=== PATIENT | female | born 1960 | race African-American/Black ===

== ENCOUNTER 2019-10-03 19:56 | Emergency (ER) | payer MEDICAID, OTHER ==
--- NOTE | 2019-10-03 20:14 | ER Document Report ---
ED Medical Screen (RME) - General Chief Complaint: Knee Pain Stated Complaint: LEFT KNEE PAIN Notes: Patient is a 59-year-old -[place] female with a past medical history of left total knee arthroplasty, kidney failure on dialysis in the past and gout who presents to the emergency department the chief complaint of left knee pain that began recently. She describes it as painful and somewhat swollen. Increased warmth as compared to the opposite. She also notes that the lower leg near the ankle is also a little swollen and tender. She denies any fall, blunt injury or trauma. She states she is concerned because the last time she came for this exact presentation she found out she was in kidney failure and wound up on dialysis. She states since that time her kidneys have "kicked back and" and she no longer needs dialysis. I have treated and performed a rapid initial assessment of this patient. A comprehensive ED assessment and evaluation of the patient, analysis of test results and completion of medical decision making process will be conducted by additional ED providers. PHYSICAL EXAMINATION: GENERAL: Well-appearing, well-nourished and in no acute distress. A&Ox4. Answers questions appropriately. Physical Exam - Vital signs Vitals: Temp Pulse Resp BP Pulse Ox 98.0 F 76 16 116/72 98 10/03/19 20:03 10/03/19 20:03 10/03/19 20:03 10/03/19 20:03 10/03/19 20:03 Course - Vital Signs Vital signs: Temp Pulse Resp BP Pulse Ox 98.0 F 76 16 116/72 98 10/03/19 20:03 10/03/19 20:03 10/03/19 20:03 10/03/19 20:03 10/03/19 20:03
--- NOTE | 2019-10-03 20:44 | RADIOLOGY REPORT (SQ) ---
EXAM DESCRIPTION: XR KNEE 1-2 VIEWS COMPLETED DATE/TME: 10/03/2019 20:12 CLINICAL HISTORY: 59 years, Female, pain COMPARISON: None. NUMBER OF VIEWS: TECHNIQUE: LIMITATIONS: None. FINDINGS: 2 views of the left knee were obtained. No fracture or dislocation. The total knee prosthesis appears to be in satisfactory position. There is no significant sized knee joint effusion. There is atherosclerotic arterial calcification. IMPRESSION: No acute finding. copyright 2010 [employer]- All Rights Reserved
[2019-10-03 20:59] LABS: ABSOLUTE EOSINOPHILS # (AUTO) 0.2 10^3/uL (0.0-0.6); ABSOLUTE LYMPHOCYTES (AUTO) 1.7 10^3/uL (0.5-4.7); ABSOLUTE MONOCYTES (AUTO) 0.3 10^3/uL (0.1-1.4); ABSOLUTE NEUT (AUTO) 4.3 10^3/uL (1.7-8.2); BASOPHILS % (AUTO) 0.7 % (0-2); EOSINOPHILS % (AUTO) 3.3 % (0-6); HEMATOCRIT 39.7 % (36.0-47.0); MEAN CORPUSCULAR HEMOGLOBIN 32.4 pg (27.0-33.4); MEAN CORPUSCULAR HGB CONC 35.3 g/dL (32.0-36.0); MEAN CORPUSCULAR VOLUME 92 fl (80-97); MONOCYTES % (AUTO) 4.5 % (3-13); PLATELET COUNT 246 10^3/uL (150-450); RED BLOOD COUNT 4.33 10^6/uL (3.72-5.28); RED CELL DISTRIBUTION WIDTH 13.1 % (11.5-14.0); SEGMENTED NEUTROPHILS % (AUTO) 65.5 % (42-78); TOTAL CELLS COUNTED % (AUTO) 100 %; WHITE BLOOD COUNT 6.5 10^3/uL (4.0-10.5)
[2019-10-03 21:14] LABS: ANION GAP 6 (5-19); BLOOD UREA NITROGEN 30 mg/dL (7-20); CALCIUM 8.9 mg/dL (8.4-10.2); CARBON DIOXIDE 25 mmol/L (22-30); CHLORIDE 107 mmol/L (98-107); GLUCOSE 117 mg/dL (75-110); POTASSIUM 4.3 mmol/L (3.6-5.0)
[2019-10-03] MEDS ORDERED: OXYCODONE-ACETAMINOPHEN 5-325 MG TABLET PO ONE (21:24)
[2019-10-03] MEDS ORDERED: NORMAL SALINE 1000 ML 1,000 ML IV ONE (21:24)
--- NOTE | 2019-10-03 21:50 | ER Document Report ---
Entered by ALANNA MITCHELL SCRIBE 10/03/192112 Acting as scribe for:ABIODUN VEGA IV, MD ED Extremity Problem, Lower - General Chief Complaint: Knee Pain Stated Complaint: LEFT KNEE PAIN Time Seen by Provider: 10/03/19 21:11 Mode of Arrival: Wheelchair Information source: Patient Notes: This 59 year old female patient with a history of bilateral total knee repla cement presents to the ED today with complaints of left knee pain and swelling to her left foot for the past x10 days. Patient states that the pain has become progressively worse since onset. Patient states that when she had similar symptoms in 2018, she wound up with kidney failure and required dialysis; patient notes she no longer needs dialysis. Patient reports a history of gout x15 years, stating that she hasn't had any problems since and that her current presentation doesn't feel like gout. Patient denies history of blood clots. - Related Data Allergies/Adverse Reactions: aspirin Allergy (Verified 10/03/19 20:13) iodine Allergy (Verified 10/03/19 20:13) Home Medications: amlodipine, ranitidine, spironolactone, metoprolol, vit d, ketoconazole Past Medical History - General Information source: Patient - Social History Smoking Status: Former Smoker Cigarette use (# per day): No Chew tobacco use (# tins/day): No Smoking Education Provided: No Frequency of alcohol use: Occasional Drug Abuse: None Family History: Reviewed & Not Pertinent Patient has suicidal ideation: No Patient has homicidal ideation: No Musculoskeletal Medical History: Reports Hx Gout Past Surgical History: Reports: Hx Orthopedic Surgery - Bilateral total knee replacement Review of Systems - Review of Systems Constitutional: No symptoms reported EENT: No symptoms reported Cardiovascular: No symptoms reported Respiratory: No symptoms reported Gastrointestinal: No symptoms reported Genitourinary: No symptoms reported Female Genitourinary: No symptoms reported Musculoskeletal: See HPI, Other - Left knee pain and swelling. Left foot swelli ng Skin: No symptoms reported Hematologic/Lymphatic: No symptoms reported Neurological/Psychological: No symptoms reported -: Yes All other systems reviewed and negative Physical Exam - Vital signs Vitals: Temp Pulse Resp BP Pulse Ox 98.0 F 76 16 116/72 98 10/03/19 20:03 10/03/19 20:03 10/03/19 20:03 10/03/19 20:03 10/03/19 20:03 Interpretation: Normal - General General appearance: Appears well, Alert - HEENT Head: Normocephalic, Atraumatic Eyes: Normal Pupils: PERRL - Respiratory Respiratory status: No respiratory distress Chest status: Nontender Breath sounds: Normal Chest palpation: Normal - Cardiovascular Rhythm: Regular Heart sounds: Normal auscultation Murmur: No Friction rub: No Gallop: None auscultated - Abdominal Inspection: Normal Distension: No distension Bowel sounds: Normal Tenderness: Nontender - Abdomen soft Organomegaly: No organomegaly - Back Back: Normal, Nontender - Extremities General upper extremity: Normal inspection General lower extremity: Other - Healed incision scars to bilateral knees Knee: Other - Left knee is slightly swollen and warm to palpation compared to the right. No deformity or crepitus appreciated. Active ROM is decreased secondary to pain. - Neurological Neuro grossly intact: Yes - Psychological Associated symptoms: Normal affect, Normal mood - Skin Skin Temperature: Warm Skin Moisture: Dry Skin Color: Normal Course - Re-evaluation Re-evalutation: 10/03/19 23:38 Results of ED MSE, discussion with Dr. Owusu discussed with patient and ashlee gifford's daughter (via phone). All questions were answered prior to discharge. Emergency signs and symptoms, reasons to return to the emergency department discussed with patient. - Vital Signs Vital signs: Temp Pulse Resp BP Pulse Ox 98.0 F 76 16 116/72 98 10/03/19 20:03 10/03/19 20:03 10/03/19 20:03 10/03/19 20:03 10/03/19 20:03 - Laboratory Result Diagrams: 10/03/19 20:45 10/03/19 20:45 Laboratory results interpreted by me: 10/03/19 10/03/19 10/03/19 20:45 20:45 20:45 ESR 52 H BUN 30 H Creatinine 1.70 H Est GFR ( Amer) 37 L Est GFR (MDRD) Non-Af 31 L Glucose 117 H Uric Acid 9.3 H C-Reactive Protein 44.5 H - Diagnostic Test Radiology reviewed: Reports reviewed - Consults Dr. Khari Owusu Time consulted: 22:00 - Dr. Owusu advised against attempting synovial fluid aspiration at this time. He stated that she could follow-up in his office early next week and have a aspiration done using a specialized FDA approved device for aspiration of prosthetic joints. Reason for consultation: 10/03/19 23:39 Left knee pain and swelling, remote history prior left knee replacement Consulted provider: follow-up in office Discharge - Discharge Clinical Impression: Swelling of left knee joint, Renal insufficiency Condition: Good Disposition: HOME, SELF-CARE Additional Instructions: Return to the Emergency Department without delay if any worse. HOME CARE INSTRUCTIONS & INFORMATION: Thank you for choosing us for your medical needs. We hope you're satisfied with the care you received. After you leave, you must properly care for your problem and, at the same time, observe its progress. Any condition can change. Some illnesses can change rapidly over hours or days. If your condition worsens, return to the Emergency Department or see your physician promptly. ABOUT YOUR X-RAYS AND EKG'S: If you had an EKG or X-rays taken, they have been read by the Emergency Physician. The X-rays and EKG's will also be read by a Radiologist or Celery Wrapper within 24 hours. If discrepancies are noted, you wi ll be notified by telephone. Please be certain the ED has a correct telephone number & address where you can be reached. Also, realize that some fractures or abnormalities do not show up on initial X-rays. If your symptoms continue, see your physician. ABOUT YOUR LABORATORY TEST: If you had laboratory tests, the results have been reviewed by the Emergency Physician. Some test results (for example cultures) may not be available for several days. You will be contacted if any test result shows you need additional treatment. Please be certain the ED has a correct telephone number and address where you can be reached. ABOUT YOUR MEDICATIONS: You will receive instructions on how to take your medicine on the prescription label you receive. Additional information may be provided by the Pharmacy. If you have questions afterwards, call the ED for clarification or further instructions. Some prescribed medications may cause drowsiness. Do not perform tasks such as driving a car or operating machinery without consulting your Pharmacist. If you feel you need a refill of pain medication, your condition will need re-evaluation. Please do not call for a refill of any medication. ABOUT YOUR SIGNATURE: Signature of this document acknowledges to followin. Understanding that you received emergency treatment and that you may be released before al medical problems are known or treated. Please be certain the ED has a correct phone number & address where you can be reached. 2. Acknowledgement that you will arrange for follow-up care as recommended. 3. Authorization for the Emergency Physician to provide information to your follow-up Physician in order to maximize your care. AT ANY TIME, IF YOUR SYMPTOMS CHANGE SIGNIFICANTLY OR WORSEN OR YOU DEVELOP NEW SYMPTOMS, RETURN TO THE EMERGENCY DEPARTMENT IMMEDIATELY FOR RE-EVALUATION. OUR GOAL IS TO PROVIDE EXCELLENT MEDICAL CARE! WE HOPE THAT WE HAVE MET YOUR EXPECTATIONS DURING YOUR EMERGENCY DEPARTMENT VISIT AND THAT YOU FEEL YOU HAVE RECEIVED EXCELLENT CARE! Gout You have been diagnosed as having gout. Gout is a problem caused by an excess of uric acid, a natural chemical found in the body. The cause of this disease is unknown. Gout arthritis occurs when crystals of uric acid form in the joints. The big toe is the most common joint involved, but any joint can become affected. Persons with gout may also form uric acid kidney stones, resulting in flank pain and blood in the urine. Nodules of uric acid may form under the skin. The first step of treatment is to decrease the inflammation in the joint with antiinflammatory medication. Medication to lower the uric acid level in the blood may then be prescribed. This medication should be taken regularly, as any sudden change in dosage may provoke an attack of gout. Some foods, such as red meat, can provoke an attack in some gout sufferers. Call the doctor if new symptoms arise, or if you do not improve. Kidney Function Abnormality Your evaluation has shown an abnormality of your kidney function. An abnormal kidney function test can be caused by dehydration, acute kidney damage, blood vessel disease (such as with diabetes or chronic high blood pressure), or just old age. If the abnormality is caused by an acute disease, it may reverse completely. Have a repeat test. If it's normal, don't worry about your kidneys. If you have a chronic kidney problem, you must be careful with medicines and medical tests. Be sure any doctor who prescribes medicine or orders tests knows that your kidney tests have been abnormal. Some medicines must have the dose reduced, other medicines must be avoided. If the doctor has recommended further workup, be sure to follow up as instructed. Call us if you have new flank pain, vomiting, confusion, or if you're unable to urinate. Prescriptions: Hydrocodone/Acetaminophen [[place] 5-325 mg Tablet] 1 tab PO Q6HP PRN #15 tablet PRN Reason: pain Referrals: KOTA RICCI PA-C [Primary Care Provider] - Follow up as needed CARRIE OWUSU JR, [ACTIVE PROVISIONAL STAFF] - 10/06/19 (Call Dr. Owusu's office on 10/06/2019 to schedule a follow up appointment to be seen as soon as possible) I personally performed the services described in the documentation, reviewed and edited the documentation which was dictated to the scribe in my presence, and it accurately records my words and actions.
[2019-10-03 22:09] LABS: C-REACTIVE PROTEIN 44.5 mg/L (<10.0); URIC ACID 9.3 mg/dL (2.5-7.5)
--- NOTE | 2019-10-03 22:14 | RADIOLOGY REPORT (SQ) ---
US LOWER EXTREMITY VEINS EXAM DATE: 10/03/2019 9:27 PM CDT HISTORY: Leg pain and swelling. COMPARISON: None. TECHNIQUE: Grayscale, color Doppler, and spectral Doppler images of the left lower extremity were performed. FINDINGS: The common femoral, superficial femoral and popliteal veins are patent and compressible. Normal augmentation and color Doppler blood flow in the aforementioned veins. The visualized calf veins are also patent. IMPRESSION: No evidence of DVT in the left lower extremity.
[2019-10-03] MEDS ORDERED: HYDROCODONE/ACETAMINOPHEN 5-325 MG (6 TAB/ER DISP) PO PRN (23:37)
[2019-10-04 00:19] VITALS: BP 105/77
== END 2019-10-04 00:19 | disposition home or self-care (01) ==
LOC: ER 19:56
DX: M25.462 Effusion, left knee (principal); M25.562 Pain in left knee; M79.89 Other specified soft tissue disorders; N28.9 Disorder of kidney and ureter, unspecified; Z96.653 Presence of artificial knee joint, bilateral; Z79.899 Other long term (current) drug therapy; Z87.39 Personal history of other diseases of the musculoskeletal system and connective tissue; Z87.891 Personal history of nicotine dependence; Z88.8 Allergy status to other drugs, medicaments and biological substances
CPT/HCPCS: 99284; 96360; 36415; 84550; 85025; 85652; 86140; 80048; 93971; 73560; J7030

== ENCOUNTER 2020-01-24 17:38 | Emergency (ER) | payer MEDICARE ==
[2020-01-24] MEDS ORDERED: OXYCODONE-ACETAMINOPHEN 5-325 MG TABLET PO ONE ×2 (17:55→20:15)
--- NOTE | 2020-01-24 17:57 | ER Document Report ---
ED Medical Screen (RME) - General Chief Complaint: Knee Pain Stated Complaint: KNEE PAIN Time Seen by Provider: 01/24/20 17:43 Primary Care Provider: KOTA RICCI PA-C [Primary Care Provider] - Follow up as needed Mode of Arrival: Wheelchair Information source: Patient Notes: Patient is a 51-year-old female presents emergency department chief complaint of left knee pain. Patient had a knee replacement done in 2004. She states she has had knee pain worsening over the last several months. She states it is gotten to a point where she cannot tolerate the pain. She reports last night the knee pain got very severe, there were swelling and she states it felt warm to the touch. She has never had a DVT before. Patient does have swelling to the left knee, there is an old scar on the anterior knee from the knee replacement. There is no obvious deformity. Unlikely that this is a DVT however due to the swelling, pain and patient reporting it was hot last night we will get an x-ray and also a venous Doppler ultrasound. I have greeted and performed a rapid initial assessment of this patient. A comprehensive ED assessment and evaluation of the patient, analysis of test results and completion of the medical decision making process will be conducted by additional ED providers. I have specifically instructed the patient or family members with the patient to immediately return to any nursing staff should anything change in the patient's condition or with their chief complaint. - Related Data Allergies/Adverse Reactions: aspirin Allergy (Verified 10/03/19 20:13) iodine Allergy (Verified 10/03/19 20:13) Past Medical History Musculoskeltal Medical History: Reports Hx Gout Past Surgical History: Reports: Hx Orthopedic Surgery - Bilateral total knee replacement Physical Exam - Vital signs Vitals: Temp Pulse Resp BP Pulse Ox 98.9 F 89 18 140/91 H 100 01/24/20 17:42 01/24/20 17:42 01/24/20 17:42 01/24/20 17:42 01/24/20 17:42 Course - Vital Signs Vital signs: Temp Pulse Resp BP Pulse Ox 98.9 F 89 18 140/91 H 100 01/24/20 17:42 01/24/20 17:42 01/24/20 17:42 01/24/20 17:42 01/24/20 17:42 Doctor's Discharge - Discharge Referrals: RICCI,KOTA R, PA-C [Primary Care Provider] - Follow up as needed
--- NOTE | 2020-01-24 19:14 | RADIOLOGY REPORT (SQ) ---
EXAM DESCRIPTION: KNEE LEFT 4 VIEW IMAGES COMPLETED DATE/TIME: 01/24/2020 7:00 pm REASON FOR STUDY: KNEE PAIN COMPARISON: 10/03/2019 NUMBER OF VIEWS: Two views. TECHNIQUE: AP and lateral radiographic images acquired of the left knee. LIMITATIONS: None. FINDINGS: Intact knee arthroplasty. No evidence of loosening. No aggressive bone lesion. IMPRESSION: Intact knee arthroplasty. TECHNICAL DOCUMENTATION: JOB ID: [id number] 2010 [employer]- All Rights Reserved Reading location - IP/workstation name: [email or web address]
--- NOTE | 2020-01-24 19:55 | RADIOLOGY REPORT (SQ) ---
EXAM DESCRIPTION: VENOUS UNILATERAL LOWER IMAGES COMPLETED DATE/TIME: 01/24/2020 7:45 pm REASON FOR STUDY: LLE PAIN/SWELLING COMPARISON: Left lower extremity venous Doppler ultrasound 10/03/2019. TECHNIQUE: Grayscale and color images acquired of the left leg venous system. Selected spectral imag es acquired with additional compression and augmentation maneuvers. The contralateral common femoral vein and saphenofemoral junction were also imaged. Images stored on PACS. LIMITATIONS: Soft tissue edema. FINDINGS: COMMON FEMORAL: Normal phasicity, compression and augmentation. No visualized echogenic ma terial on shaw scale. No defects on color images. FEMORAL: Normal compression and augmentation. No visualized echogenic material on shaw scale. No defe cts on color images. POPLITEAL: Normal compression, augmentation. No visualized echogenic material on shaw scale. No defec ts on color images. CALF VESSELS: The peroneal vein was not visualized due to soft tissue edema. Normal compression with no visualized echogenic material on shaw scale and no defects on color images at the posterior tibia l vein. GSV and SSV: Normal compression, augmentation. No visualized echogenic material on shaw scale. No def ects on color images. ANY DEEP VENOUS INSUFFICIENCY: Not evaluated. ANY EVIDENCE OF POPLITEAL CYST: No. CONTRALATERAL COMMON FEMORAL VEIN AND SAPHENOFEMORAL JUNCTION: Normal phasicity, compression and augmentation. No visualized echogenic material on shaw scale. No de fects on color images. IMPRESSION: NO EVIDENCE FOR DVT OR SVT IN THE LEFT LEG. TECHNICAL DOCUMENTATION: JOB ID: [id number] 2010 [employer]- All Rights Reserved Reading location - IP/workstation name: [email or web address]
--- NOTE | 2020-01-24 22:01 | ER Document Report ---
ED Extremity Problem, Lower - General Chief Complaint: Knee Pain Stated Complaint: KNEE PAIN Time Seen by Provider: 01/24/20 17:43 Primary Care Provider: KOTA RICCI PA-C [Primary Care Provider] - Follow up as needed CARRIE DIOP JR, DO [ACTIVE PROVISIONAL STAFF] - Follow up as needed Mode of Arrival: Wheelchair Notes: Very pleasant 59-year-old female with past medical history of gout, COPD, hypertension, rheumatoid arthritis, double knee replacement presenting with 5 months of left knee pain. States that she has seen Dr. Diop for her knee pain. Her last appointment was 1 month ago. He has prescribed her steroids which provided no relief of her pain. She states that today she felt worsening pain and she almost fell due to her knee was giving out. She also reports that there is some swelling. She states that her knee continues to pop out place. She has concerns that her weight is causing some of her symptoms. She states that she has been to physical therapy for her bilateral shoulder pain. She has follow-up appointments with her primary care and Dr. Diop in the next 1 to 2 months. Is unable to see rheumatoid arthritis until 2020. Has taken narcotics for pain relief after her surgeries. Her left knee replacement was performed in 2004 in [place], [place]. States she has chronic abdominal pain. She denies any fevers, chills. Is visibly upset that she has been in pain for 5 months and nobody has been able to find an answer. Tylenol is not helping with her pain. States last time this knee pain occurred she was in renal failure requiring dialysis. No longer on dialysis. - Related Data Allergies/Adverse Reactions: aspirin Allergy (Verified 10/03/19 20:13) iodine Allergy (Verified 10/03/19 20:13) Past Medical History - General Information source: Patient - Social History Smoking Status: Unknown if Ever Smoked Family History: Reviewed & Not Pertinent Patient has homicidal ideation: No - Past Medical History Cardiac Medical History: Reports: Hx Hypertension Endocrine Medical History: Reports: Hx Diabetes Mellitus Type 2 - borderline Musculoskeletal Medical History: Reports Hx Gout Past Surgical History: Reports: Hx Appendectomy, Hx Cholecystectomy, Hx Orthopedic Surgery - Bilateral total knee replacement Review of Systems - Review of Systems Constitutional: No symptoms reported EENT: No symptoms reported Cardiovascular: No symptoms reported Respiratory: No symptoms reported Gastrointestinal: See HPI Genitourinary: No symptoms reported Female Genitourinary: No symptoms reported Musculoskeletal: See HPI Skin: No symptoms reported Hematologic/Lymphatic: No symptoms reported Physical Exam - Vital signs Vitals: Temp Pulse Resp BP Pulse Ox 98.9 F 89 18 140/91 H 100 01/24/20 17:42 01/24/20 17:42 01/24/20 17:42 01/24/20 17:42 01/24/20 17:42 Interpretation: Normal - Notes Notes: Adult General: GENERAL: Alert, interacts well. No acute distress HEAD: Normocephalic, atraumatic EYES: Pupils equal, round and reactive to light. Extraocular movements intact. ENT: Airway patent. Nares patent. NECK: Full range of motion. Supple. Trachea midline. LUNGS: Clear to auscultation bilaterally, no wheezes, rales, or rhonchi. No respiratory distress. Nontender chest wall. HEART: Regular rate and rhythm. No murmurs, rubs or gallops. ABDOMEN: Soft, nontender. GENITOURINARY: Deferred EXTREMITIES: Limited flexion of her left knee. Mild swelling above the patella. Tender to palpation above patella. No erythema or warmth. Dorsal pedis pulses palpable bilaterally. Good sensation in distal extremities. BACK: No cervical, thoracic, lumbar midline tenderness. normal distal neurovascular exam. NEUROLOGICAL: Alert and oriented x3. Normal speech. 4/5 strength in left lower extremity. PSYCH: Normal affect, normal mood. SKIN: Warm, dry, normal turgor. No rashes or lesions noted. Course - Re-evaluation Re-evalutation: 01/24/20 22:01 I had an in-depth long discussion with the patient about her left knee pain. She states that she is tired of the knee pain and that there have been no answered to the cause of her pain and she has not had improvement in her symptoms. I discussed with her that her x-ray shows no acute findings and that her ultrasound shows no DVT or SVT. I also discussed with patient that she is correct that losing weight could decrease the pain in her knee. Discussed with her following up with her primary care for nutrition referral and also a potential pain management referral. I also discussed with patient that she should follow-up with Dr. Diop in regards to her pain for additional treatment options at this time. I discussed with her that there is no urgent or emergent cause of her pain at this time. I will prescribe her pain medications. I also recommend patient obtain a cane or walker to aid in her walking as she has concerns of feeling unsteady and falling. I reviewed patients chart more indepth. She was seen back in September for the same complaint. Recommend additional labs at this time. Pending those results. Patient's creatinine is 1.38, uric acid is mildly elevated at 8.1 she has an ESR of 57. Rest of her labs are unremarkable. I discussed these findings with the patient. I reiterated to the patient that she needs to follow-up with Dr. Diop in regards to her knee pain. I will prescribe her pain medication at this time. I discussed return precautions to the emergency department to include worsening symptoms or development of new symptoms. Patient acknowledges and verbalizes understanding of instructions and plan. All questions answered. - Vital Signs Vital signs: Temp Pulse Resp BP Pulse Ox 97.7 F 83 16 116/72 98 01/25/20 00:15 01/25/20 00:15 01/25/20 00:15 01/25/20 00:15 01/25/20 00:15 - Laboratory Result Diagrams: 01/24/20 22:48 01/24/20 22:48 Laboratory results interpreted by me: 01/24/20 01/24/20 22:48 22:48 ESR 57 H BUN 24 H Creatinine 1.38 H Est GFR ( Amer) 48 L Est GFR (MDRD) Non-Af 39 L Uric Acid 8.1 H Discharge - Discharge Clinical Impression: Elevated serum creatinine Gout Qualifiers: Gout site: knee Gout etiology: unspecified cause Chronicity: chronic Laterality: left Qualified Code(s): M1A.0620 - Idiopathic chronic gout, left knee, without tophus (tophi) Left knee pain Qualifiers: Chronicity: chronic Qualified Code(s): M25.562 - Pain in left knee Disposition: HOME, SELF-CARE Instructions: Oral Narcotic Medication ([facility]) Additional Instructions: Please follow-up with your orthopedic doctor as soon as possible. Please follow-up with your primary care doctor to continue to evaluate for your elevated creatinine. Please return the emergency department if you have worsening symptoms or development of new symptoms. Please consider purchasing an ambulatory device to help you not feel like your knee is giving out on you such as a cane or walker. Prescriptions: Hydrocodone/Acetaminophen [[place] 10-325 Tablet] 1 each PO Q6H 3 Days #12 tablet Referrals: KOTA RICCI PA-C [Primary Care Provider] - Follow up as needed CARRIE DIOP JR, DO [ACTIVE PROVISIONAL STAFF] - Follow up as needed
[2020-01-24 23:00] LABS: ABSOLUTE EOSINOPHILS # (AUTO) 0.2 10^3/uL (0.0-0.6); ABSOLUTE LYMPHOCYTES (AUTO) 2.1 10^3/uL (0.5-4.7); ABSOLUTE MONOCYTES (AUTO) 0.3 10^3/uL (0.1-1.4); ABSOLUTE NEUT (AUTO) 4.9 10^3/uL (1.7-8.2); BASOPHILS % (AUTO) 0.5 % (0-2); EOSINOPHILS % (AUTO) 2.7 % (0-6); HEMATOCRIT 39.3 % (36.0-47.0); HEMOGLOBIN 13.4 g/dL (12.0-15.5); LYMPHOCYTES % (AUTO) 27.4 % (13-45); MEAN CORPUSCULAR HEMOGLOBIN 31.7 pg (27.0-33.4); MEAN CORPUSCULAR VOLUME 93 fl (80-97); MONOCYTES % (AUTO) 4.6 % (3-13); PLATELET COUNT 298 10^3/uL (150-450); RED BLOOD COUNT 4.21 10^6/uL (3.72-5.28); RED CELL DISTRIBUTION WIDTH 13.8 % (11.5-14.0); SEGMENTED NEUTROPHILS % (AUTO) 64.8 % (42-78); TOTAL CELLS COUNTED % (AUTO) 100 %; WHITE BLOOD COUNT 7.5 10^3/uL (4.0-10.5)
[2020-01-24 23:18] LABS: ALBUMIN 3.6 g/dL (3.5-5.0); ALKALINE PHOSPHATASE 111 U/L (38-126); ANION GAP 8 (5-19); ASPARTATE AMINO TRANSFERASE 23 U/L (14-36); BILIRUBIN,TOTAL 0.4 mg/dL (0.2-1.3); BLOOD UREA NITROGEN 24 mg/dL (7-20); CALCIUM 8.9 mg/dL (8.4-10.2); CARBON DIOXIDE 24 mmol/L (22-30); CHLORIDE 105 mmol/L (98-107); GLUCOSE 100 mg/dL (75-110); POTASSIUM 4.2 mmol/L (3.6-5.0); TOTAL PROTEIN 7.5 g/dL (6.3-8.2); URIC ACID 8.1 mg/dL (2.5-7.5)
[2020-01-24 23:49] LABS: ERYTHROCYTE SEDIMENTATION RATE 57 mm/hr (0-30)
[2020-01-25 00:18] VITALS: BP 116/72
== END 2020-01-25 00:19 | disposition home or self-care (01) ==
LOC: ER 17:38
DX: M1A.0620 Idiopathic chronic gout, left knee, without tophus (tophi) (principal); R79.89 Other specified abnormal findings of blood chemistry; M25.562 Pain in left knee; Z96.653 Presence of artificial knee joint, bilateral; J44.9 Chronic obstructive pulmonary disease, unspecified; I10 Essential (primary) hypertension; M06.9 Rheumatoid arthritis, unspecified; E11.9 Type 2 diabetes mellitus without complications; Z88.8 Allergy status to other drugs, medicaments and biological substances
CPT/HCPCS: 99284; 36415; 84550; 85025; 85652; 80053; 93971; 73564; A9270

== ENCOUNTER → 2020-02-09 | Outpatient (CLI) | payer MEDICARE ==
[2020-02-09 13:31] LABS: FREE T4 (FREE THYROXINE) 1.19 ng/dL (0.78-2.19)
[2020-02-09 13:45] LABS: THYROID STIMULATING HORMONE 1.46 uIU/mL (0.47-4.68)
== END ==
LOC: OD 12:03
PROVIDERS: ATTEND Otolaryngology
DX: E04.2 Nontoxic multinodular goiter (principal)
CPT/HCPCS: 36415; 84439; 84443

== ENCOUNTER → 2020-03-02 | Outpatient (CLI) | payer MEDICARE | LOC: RAD 11:03 | PROVIDERS: ATTEND Internal Medicine Hematology & Oncology | DX: R91.8 Other nonspecific abnormal finding of lung field (principal); J98.4 Other disorders of lung | CPT/HCPCS: 78815; A9552 ==

== ENCOUNTER → 2020-03-25 | Outpatient (CLI) | payer MEDICARE, MEDICAID ==
--- NOTE | 2020-03-25 14:59 | WOMENS IMAGING REPORT ---
EXAM DESCRIPTION: U/S THYROID/ST TIS HEAD NECK IMAGES COMPLETED DATE/TIME: 03/25/2020 8:33 am REASON FOR STUDY: E04.2 NONTOXIC MULTINODULAR GOITER E04.2 NONTOXIC MULTINODULAR GOITER COMPARISON: None. TECHNIQUE: Dynamic and static shaw-scale images acquired of the thyroid gland. Selected additional c olor/power Doppler images recorded. All images stored to PACS. LIMITATIONS: None. FINDINGS: RIGHT LOBE: Prominent size, 5.1 cm Homogeneous echotexture. Multiple nodules. LEFT LOBE: Prominent size, 5.1 cm. Homogeneous echotexture. Multiple nodules ISTHMUS: Prominent, 4.4 mm. Homogeneous echotexture. No cystic or solid masses. OTHER: No other significant finding. IMPRESSION: Multinodular goiter. The largest in the right lobe measures 12.7 mm. The largest on th e left measures 13.6 mm. COMMENT: Consider the biopsy of the larger nodules on each side. TECHNICAL DOCUMENTATION: JOB ID: [id number] 2010 [employer]- All Rights Reserved Reading location - IP/workstation name: [email or web address]
== END ==
LOC: WI 07:46
PROVIDERS: ATTEND Internal Medicine Pulmonary Disease
DX: E04.2 Nontoxic multinodular goiter (principal)
CPT/HCPCS: 76536

== ENCOUNTER → 2020-03-29 | Outpatient (CLI) | payer MEDICAID, MEDICARE ==
--- NOTE | 2020-03-29 11:14 | WOMENS IMAGING REPORT ---
EXAM DESCRIPTION: RETROPERITONEAL U/S IMAGES COMPLETED DATE/TIME: 03/29/2020 10:54 am REASON FOR STUDY: N18.3 CHRONIC KIDNEY DISEASE, STAGE 3 (MODERATE) N18.3 CHRONIC KIDNEY DISEASE, ST AGE 3 (MODERATE) COMPARISON: None. TECHNIQUE: Dynamic and static grayscale images acquired of the kidneys and bladder and recorded on P ACS. Additional selected color Doppler and spectral images recorded. LIMITATIONS: None. FINDINGS: RIGHT KIDNEY: The right kidney measures 8.7 cm in cranial caudal dimensions. Normal ech ogenicity. No solid or suspicious masses. No hydronephrosis. No calcifications. LEFT KIDNEY: The left kidney measures 9.3 cm in cranial caudal dimensions. Normal echogenicity. No solid or suspicious masses. No hydronephrosis. No calcifications. BLADDER: The bladder is decompressed. OTHER FINDINGS: No other significant finding. IMPRESSION: Normal renal ultrasound. The bladder is decompressed. TECHNICAL DOCUMENTATION: JOB ID: [id number] 2010 [employer]- All Rights Reserved Reading location - IP/workstation name: [email or web address]
== END ==
LOC: WI 09:56
PROVIDERS: ATTEND Physician Assistant Medical
DX: I12.9 Hypertensive chronic kidney disease with stage 1 through stage 4 chronic kidney disease, or unspecified chronic kidney disease (principal); N18.3 Chronic kidney disease, stage 3 (moderate)
CPT/HCPCS: 76770

== ENCOUNTER 2020-05-09 14:09 | Emergency (ER) | payer MEDICARE, MEDICAID ==
--- NOTE | 2020-05-09 14:30 | ER Document Report ---
ED Medical Screen (RME) - General Chief Complaint: Cough Stated Complaint: BACK PAIN Time Seen by Provider: 05/09/20 14:25 Primary Care Provider: DENITA WARD PA-C [Primary Care Provider] - Follow up as needed Mode of Arrival: Wheelchair Information source: Patient Notes: 59-year-old female presents to ED for a bad cough for about the last 2 weeks. She states she does have a change in smell. She does also have chronic back pain and they just started on Vicodin for her arthritis. She states she still has pain in her back even with the Vicodin. She states she has been having a very sick dark expectorant when she coughs. She does have asthma arthritis fibromyalgia COPD diabetes and gout. She states she does not smoke drink or use any illicit drugs. I will order chest x-ray blood urine lumbar x-ray and influenza and Covid test. I have greeted and performed a rapid initial assessment of this patient. A comprehensive ED assessment and evaluation of the patient, analysis of test results and completion of medical decision making process will be conducted by an additional ED providers. - Related Data Allergies/Adverse Reactions: aspirin Allergy (Verified 10/03/19 20:13) iodine Allergy (Verified 10/03/19 20:13) Past Medical History - Past Medical History Cardiac Medical History: Reports: Hx Hypertension Endocrine Medical History: Reports: Hx Diabetes Mellitus Type 2 - borderline Musculoskeltal Medical History: Reports Hx Gout Past Surgical History: Reports: Hx Appendectomy, Hx Cholecystectomy, Hx Orthopedic Surgery - Bilateral total knee replacement Physical Exam - Vital signs Vitals: Temp Pulse Resp BP Pulse Ox 98.5 F 85 20 104/71 96 05/09/20 14:24 05/09/20 14:24 05/09/20 14:24 05/09/20 14:24 05/09/20 14:24 Course - Vital Signs Vital signs: Temp Pulse Resp BP Pulse Ox 98.5 F 85 20 104/71 96 05/09/20 14:24 05/09/20 14:24 05/09/20 14:24 05/09/20 14:24 05/09/20 14:24 Doctor's Discharge - Discharge Referrals: DENITA WARD PA-C [Primary Care Provider] - Follow up as needed
--- NOTE | 2020-05-09 15:18 | ER Document Report ---
ED Respiratory Problem - General Chief Complaint: Back Pain Stated Complaint: BACK PAIN Time Seen by Provider: 05/09/20 14:25 Primary Care Provider: DENITA WARD PA-C [Primary Care Provider] - Follow up as needed Mode of Arrival: Wheelchair Information source: Patient Notes: 05/09/20 15:08 - ED [facility]: [id number] : 1960 Patient Age: 59 patient reports to the ED with complaints of cough with green/yellow phlegm, diarrhea, chills, sore throat, SOB that began 2 weeks ago. patient states that she also has lower back pain due to an injury that happened yesterday during picking up a trash can. 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 AOx4, even and unlabored breathing, speaking in clear and complete sentences. NAD noted. ED Medical Screen (Mike notes) - General Chief Complaint: Cough Stated Complaint: BACK PAIN Time Seen by Provider: 05/09/20 14:25 Primary Care Provider: DENITA WARD PA-C [Primary Care Provider] - Follow up as needed Mode of Arrival: Wheelchair Information source: Patient Notes: 59-year-old female presents to ED for a bad cough for about the last 2 weeks. She states she does have a change in smell. She does also have chronic back pain and they just started on Vicodin for her arthritis. She states she still has pain in her back even with the Vicodin. She states she has been having a very sick dark expectorant when she coughs. She does have asthma arthritis fibromyalgia COPD diabetes and gout. She states she does not smoke drink or use any illicit drugs. I will order chest x-ray blood urine lumbar x-ray and inf luenza and Covid test. MY NOTES 59-year-old black female arrives with chief complaint of having productive yellow phlegm cough bloody nasal phlegm sore throat myalgias no taste no smell for 2 weeks. She reports she has not been around any sick people but goes to her doctor's offices through [place] [facility] bus system. She has rheumatoid arthritis and gets biological therapy as well as the pain management at [facility] pain clinic. She was there over the past few days and got a prescription for gabapentin 3 times daily and Raven twice daily for her arthritis pain and also her right SI pain. She reported on Sunday she bent over and felt a pain in her low back pointing to her sacroiliac area on the right. She did not hear a pop but she did feel a stabbing sensation. She denies any vomiting she denies any diarrhea she denies any constipation. She reports she does have a history of COPD rheumatoid arthritis DJD and fibromyalgia. She is a very pleasant patient and good historian. She asked for something to drink and Ellie Mist was provided. TRAVEL OUTSIDE OF THE [place] IN LAST 30 DAYS: No - HPI Patient complains to provider of: Cough - Related Data Allergies/Adverse Reactions: aspirin Allergy (Verified 10/03/19 20:13) iodine Allergy (Verified 10/03/19 20:13) Past Medical History - General Information source: Patient - Social History Smoking Status: Former Smoker Family History: Reviewed & Not Pertinent - Past Medical History Cardiac Medical History: Reports: Hx Hypertension Endocrine Medical History: Reports: Hx Diabetes Mellitus Type 2 - borderline Musculoskeletal Medical History: Reports Hx Gout Past Surgical History: Reports: Hx Appendectomy, Hx Cholecystectomy, Hx Orthopedic Surgery - Bilateral total knee replacement Physical Exam - Vital signs Vitals: Temp Pulse Resp BP Pulse Ox 98.5 F 85 20 104/71 96 05/09/20 14:24 05/09/20 14:24 05/09/20 14:24 05/09/20 14:24 05/09/20 14:24 Course - Vital Signs Vital signs: Temp Pulse Resp BP Pulse Ox 98.5 F 85 20 104/71 96 05/09/20 14:24 05/09/20 14:24 05/09/20 14:24 05/09/20 14:24 05/09/20 14:24 - Laboratory Result Diagrams: 05/09/20 14:46 05/09/20 14:46 Laboratory results interpreted by me: 05/09/20 14:46 BUN 26 H Creatinine 1.41 H Est GFR ( Amer) 46 L Est GFR (MDRD) Non-Af 38 L - Diagnostic Test Radiology reviewed: Reports reviewed Discharge - Discharge Clinical Impression: COVID-19 virus RNA test result unknown, right sacroilac strain acute URI (upper respiratory infection) Qualifiers: URI type: unspecified URI Qualified Code(s): J06.9 - Acute upper respiratory infection, unspecified Condition: Stable Disposition: HOME, SELF-CARE Instructions: COVID-19 Guidance for Persons Under Investigation Additional Instructions: Follow-up with personal doctor and return to ER as needed take your medicines as directed encourage fluids return to ER if symptoms persist and try to stay quarantined until your COVID-19 test returns and around 2 days time. Prescriptions: Hydrocodone Bit/Homatropine [Hycodan Syrup 5-1.5 mg/5 ml Ud Cup] 5 ml PO Q4HP PRN #120 ml PRN Reason: Dexamethasone [Decadron 4 Mg Tablet] 4 mg PO DAILY #5 tablet Famotidine [Pepcid 40 mg/5 ml Susp] 40 mg PO Q12 #100 ml Azithromycin [Zithromax 250 mg Tablet] 250 mg PO ASDIR PRN #6 tablet PRN Reason: Referrals: DENITA WARD PA-C [Primary Care Provider] - Follow up as needed
[2020-05-09 15:23] LABS: ABSOLUTE BASOPHILS # (AUTO) 0.1 10^3/uL (0.0-0.2); ABSOLUTE EOSINOPHILS # (AUTO) 0.3 10^3/uL (0.0-0.6); ABSOLUTE LYMPHOCYTES (AUTO) 1.7 10^3/uL (0.5-4.7); ABSOLUTE MONOCYTES (AUTO) 0.5 10^3/uL (0.1-1.4); ABSOLUTE NEUT (AUTO) 3.7 10^3/uL (1.7-8.2); EOSINOPHILS % (AUTO) 4.4 % (0-6); HEMATOCRIT 38.8 % (36.0-47.0); HEMOGLOBIN 13.3 g/dL (12.0-15.5); LYMPHOCYTES % (AUTO) 27.9 % (13-45); MEAN CORPUSCULAR HEMOGLOBIN 32.7 pg (27.0-33.4); MEAN CORPUSCULAR HGB CONC 34.4 g/dL (32.0-36.0); MEAN CORPUSCULAR VOLUME 95 fl (80-97); MONOCYTES % (AUTO) 7.5 % (3-13); PLATELET COUNT 359 10^3/uL (150-450); RED BLOOD COUNT 4.08 10^6/uL (3.72-5.28); RED CELL DISTRIBUTION WIDTH 13.7 % (11.5-14.0); SEGMENTED NEUTROPHILS % (AUTO) 59.2 % (42-78); TOTAL CELLS COUNTED % (AUTO) 100 %; WHITE BLOOD COUNT 6.2 10^3/uL (4.0-10.5)
[2020-05-09 15:38] LABS: A TYPE INFLUENZA AG NEGATIVE (NEGATIVE); B INFLUENZA AG NEGATIVE (NEGATIVE)
[2020-05-09 15:39] LABS: ALKALINE PHOSPHATASE 87 U/L (38-126); ANION GAP 12 (5-19); ASPARTATE AMINO TRANSFERASE 25 U/L (14-36); BILIRUBIN,DIRECT 0.3 mg/dL (0.0-0.4); BILIRUBIN,TOTAL 0.6 mg/dL (0.2-1.3); BLOOD UREA NITROGEN 26 mg/dL (7-20); CALCIUM 9.6 mg/dL (8.4-10.2); CARBON DIOXIDE 25 mmol/L (22-30); CHLORIDE 102 mmol/L (98-107); GLUCOSE 81 mg/dL (75-110); POTASSIUM 4.8 mmol/L (3.6-5.0); TOTAL PROTEIN 7.8 g/dL (6.3-8.2)
--- NOTE | 2020-05-09 15:47 | RADIOLOGY REPORT (SQ) ---
EXAM DESCRIPTION: CHEST SINGLE VIEW IMAGES COMPLETED DATE/TIME: 05/09/2020 3:39 pm REASON FOR STUDY: Cough congestion dark thick sputum COPD and asthma COMPARISON: None. EXAM PARAMETERS: NUMBER OF VIEWS: One view. TECHNIQUE: Single frontal radiographic view of the chest acquired. RADIATION DOSE: NA LIMITATIONS: None. FINDINGS: LUNGS AND PLEURA: Diffuse interstitial pattern with mild bronchiectasis. No infiltrate. MEDIASTINUM AND HILAR STRUCTURES: No masses. Contour normal. HEART AND VASCULAR STRUCTURES: Heart normal in size. Normal vasculature. BONES: No acute findings. HARDWARE: None in the chest. OTHER: No other significant finding. IMPRESSION: Chronic interstitial changes. No infiltrate. TECHNICAL DOCUMENTATION: JOB ID: [id number] 2010 [employer]- All Rights Reserved Reading location - IP/workstation name: [email or web address]
[2020-05-09] MEDS ORDERED: AZITHROMYCIN 250 MG TABLET PO ONE (15:51)
[2020-05-09] MEDS ORDERED: DEXAMETHASONE SOD PHOS INJ 10 MG/1 ML VIAL IM ONE (15:53)
[2020-05-09] MEDS ORDERED: FAMOTIDINE 20 MG TABLET PO ONE (15:53)
[2020-05-09] MEDS ORDERED: DEXAMETHASONE SOD PHOSPHATE INJ 4 MG/1 ML VIAL IM ONE (16:10)
[2020-05-09 18:27] LABS: APPEARANCE,URINE CLEAR; BILIRUBIN,URINE NEGATIVE (NEGATIVE); COLOR,URINE YELLOW; GLUCOSE, URINE NEGATIVE (NEGATIVE); KETONES,URINE NEGATIVE (NEGATIVE); LEUKOCYTE ESTERASE,URINE NEGATIVE (NEGATIVE); NITRITE,URINE NEGATIVE (NEGATIVE); PROTEIN,URINE NEGATIVE (NEGATIVE); URINE SPECIFIC GRAVITY 1.011; UROBILINOGEN,URINE NEGATIVE mg/dL (<2.0)
[2020-05-09 18:40] VITALS: BP 110/65
== END 2020-05-09 18:42 | disposition home or self-care (01) ==
LOC: ER 14:09
DX: J06.9 Acute upper respiratory infection, unspecified (principal); M54.5 Low back pain; R19.7 Diarrhea, unspecified; Z20.828 Contact with and (suspected) exposure to other viral communicable diseases
CPT/HCPCS: 99284; 96372; 36415; 87086; 85025; 80053; 81001; 87804; 71045; U0003; A9270 ×2; J1100; C9803; 87635

== ENCOUNTER → 2020-07-05 | Outpatient (CLI) | payer MEDICAID, MEDICARE ==
--- NOTE | 2020-07-05 17:04 | RADIOLOGY REPORT (SQ) ---
EXAM DESCRIPTION: CT CHEST WITHOUT IMAGES COMPLETED DATE/TIME: 07/05/2020 1:35 pm REASON FOR STUDY: (R91.8)OTHER NONSPECIFIC ABNORMAL FINDING OF LUNG FIELD R91.8 OTHER NONSPECIFIC A BNORMAL FINDING OF LUNG FIELD COMPARISON: None. TECHNIQUE: CT scan performed of the chest without intravenous contrast. Images reviewed with lung, soft tissue and bone windows. Reconstructed coronal and sagittal MPR images reviewed. All images st ored on PACS. All CT scanners at this facility use dose modulation, iterative reconstruction, and/or weight based d osing when appropriate to reduce radiation dose to as low as reasonably achievable (ALARA). [facility]: Dose Right [facility]: CareDose [facility]: Dose Right [facility]: Teradose 4D [facility]: [employer] RADIATION DOSE: CT Rad equipment meets quality standard of care and radiation dose reduction techniq ues were employed. CTDIvol: 17.9 mGy. DLP: 617 mGy-cm. mGy. LIMITATIONS: No technical limitations. FINDINGS: LUNGS AND PLEURA: Some nonspecific peripheral opacities in the posterolateral right lower lobe are slightly decreased in density since prior examination. Background cystic changes and bronch iectasis again demonstrated. Additional linear opacities likely representing scarring or atelectasis . Tiny nodular opacities are stable. No mass lesion identified. HILAR AND MEDIASTINAL STRUCTURES: Stable prominent right pretracheal lymph node. No new lymphadenopa thy. HEART AND VASCULAR STRUCTURES: Extensive coronary artery calcifications. No pericardial effusion. N o aneurysm. UPPER ABDOMEN: Status post cholecystectomy. No acute abnormality. THYROID AND OTHER SOFT TISSUES: Visualized thyroid gland is unremarkable. There are some mildly enla rged axillary lymph nodes bilaterally. Social Problems Specialist left axillary lymph node measures 3.3 x 1.5 cm . Right axillary lymph node measures 1.8 x 1.6 cm. These are slightly increased in size since prior PET CT. BONES: No significant finding. HARDWARE: None in the chest. OTHER: No other significant findings. IMPRESSION: 1. Slightly decreased density of peripheral opacity in the posterolateral right lower l obe since prior examination. Continued follow-up is recommended to confirm complete resolution. 2. Some increase in size of bilateral enlarged axillary lymph nodes. Recommend further evaluation w ith ultrasound. 3. Background pulmonary cystic changes and bronchiectasis appear similar to prior. TECHNICAL DOCUMENTATION: JOB ID: [id number] Quality ID # [id number]: Final reports with documentation of one or more dose reduction techniques (e.g., Au tomated exposure control, adjustment of the mA and/or kV according to patient size, use of iterative reconstruction technique) 2010 [employer]- All Rights Reserved Reading location - IP/workstation name: [email or web address]
== END ==
LOC: RAD 16:30
PROVIDERS: ATTEND Internal Medicine Pulmonary Disease
DX: R91.8 Other nonspecific abnormal finding of lung field (principal); J47.9 Bronchiectasis, uncomplicated
CPT/HCPCS: 71250